=== PATIENT | female | born 2000 | race African-American/Black ===

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

== ENCOUNTER 2020-05-27 17:45 | Emergency (ER) | payer OTHER ==
[~2020-05-27] VITALS: Ht 172.7 cm; Wt 64.9 kg
--- NOTE | 2020-05-27 18:21 | NUR ---
PT AMBULATORY TO ER BED 16 C/O THROAT DISCOMFORT, TONGUE SWELLING SENSATION THAT STARTED LAST NIGHT. PT DENIES SOB. AFEBRILE SKEWER UP. VSS. AWAITING MD CABRAL.
[2020-05-27] MEDS ORDERED: DEXAMETHASONE SOD PHOSPHATE 10 MG/ML VIAL IV ONE (19:00)
[2020-05-27] MEDS ORDERED: IV NS 0.9% 1,000 ML BAG IV ONE (19:00)
[2020-05-27] MEDS ORDERED: KETOROLAC TROMETHAMINE INJ 30 MG/ML VIAL IV ONE (19:00)
[2020-05-27] MEDS ORDERED: CLINDAMYCIN 900 MG in IV D5W 100 ML IV ONE (19:00)
--- NOTE | 2020-05-27 19:01 | NUR ---
SHAWNA DEL CASTILLO AT BEDSIDE FOR EVAL.
--- NOTE | 2020-05-27 19:10 | NUR ---
IV LINE STARTED BLOOD DRAWN AND SENT TO LAB.
[2020-05-27] MEDS ORDERED: CLINDAMYCIN 900 MG/6 ML VIAL ONE (19:14)
[2020-05-27] MEDS ORDERED: DEXAMETHASONE SOD PHOSPHATE 10 MG/ML VIAL ONE (19:16)
[2020-05-27 19:23] LABS: CALCIUM, SERUM 9.5 mg/dL (8.5-10.1); CREATININE 0.8 mg/dL (0.6-1.3); POTASSIUM 3.7 mmol/L (3.5-5.1)
[2020-05-27 19:28] LABS: MONOTEST NEGATIVE (NEGATIVE)
[2020-05-27] MEDS ORDERED: KETOROLAC TROMETHAMINE 15 MG/ML VIAL ONE (19:28)
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
[2020-05-27 20:13] LABS: BASOPHILS % (AUTO) 0.2 % (0.0-2.0); EOSINOPHILS % (AUTO) 0.1 % (0.0-6.0); HEMATOCRIT 43 % (33-45); HEMOGLOBIN 14.1 g/dL (11.5-14.8); LYMPHOCYTES # (AUTO) 1.1 /CMM (0.8-4.8); LYMPHOCYTES % (AUTO) 7.4 % (20.0-44.0); MEAN CORPUSCULAR HGB CONC 33 g/dl (31.0-36.0); MEAN CORPUSCULAR VOLUME 93 fL (82-100); MONOCYTES # (AUTO) 1.4 /CMM (0.1-1.30); NEUTROPHILS # (AUTO) 12.7 /CMM (1.8-8.9); NEUTROPHILS % (AUTO) 83.3 % (43.0-81.0); PLATELET COUNT (AUTO) 321 /CMM (150-450); RED BLOOD CELL COUNT(AUTO) 4.62 MIL/uL (4.0-5.2); WHITE BLOOD COUNT (AUTO) 15.2 K/uL (4.3-11.0)
--- NOTE | 2020-05-27 20:52 | NUR ---
IV removed. Catheter intact and site benign. Pressure and 4x4 applied to site. No bleeding noted. Patient discharged to home in stable condition. Written and verbal after care instructions given. Patient verbalizes understanding of instruction. ambulatory with a steady gait noted. pt aaox4 no acute distress noted, resp even and unlabored.
[2020-05-27 20:53] VITALS: BP 124/73
== END 2020-05-27 20:54 | disposition home or self-care (01) ==
LOC: ER 17:51
DX: J36 Peritonsillar abscess (principal); R59.0 Localized enlarged lymph nodes; R52 Pain, unspecified
CPT/HCPCS: 36415; 80048; 85025; 86308; 87880; 96365; 96375; 99284; J1100; J1885; J3490 ×2; J7060; 86403-TC; J7030

== ENCOUNTER 2021-09-01 17:29 | Emergency (ER) | payer OTHER ==
[~2021-09-01] VITALS: Ht 172.7 cm; Wt 68.9 kg
[2021-09-01 17:51] VITALS: BP 140/94
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
[2021-09-01] MEDS ORDERED: AMOX-430 PO (18:08)
[2021-09-01] MEDS ORDERED: IBUP-1955 PO (18:08)
[2021-09-01] MEDS ORDERED: IBUPROFEN 600 MG TABLET ONE (18:15)
[2021-09-01] MEDS ORDERED: IBUPROFEN 600 MG TABLET PO ONE (18:30)
[2021-09-01] MEDS ORDERED: TDAP [DIPH/PERTUSSIS/TET] 0.5 ML VIAL IM ONE ×2 (18:36→19:00)
== END 2021-09-01 18:27 | disposition home or self-care (01) ==
LOC: ER 17:33
DX: S01.511A Laceration without foreign body of lip, initial encounter (principal); Y04.1XXA Assault by human bite, initial encounter; Y93.89 Activity, other specified; Y92.89 Other specified places as the place of occurrence of the external cause; Y99.8 Other external cause status
CPT/HCPCS: 90715